=== PATIENT | male | born 1985 | race Caucasian/White ===

== ENCOUNTER 2018-06-23 18:01 | Emergency (ER) | payer MEDICAID, OTHER ==
[~2018-06-23] VITALS: Ht 180.3 cm; Wt 93.5 kg
[2018-06-23 18:01] VITALS: BP 136/61
[2018-06-23] MEDS ORDERED: PRED50TA PO (18:27)
[2018-06-23] MEDS ORDERED: HYDR25TA PO (18:27)
--- NOTE | 2018-06-23 18:27 | PHYS DOC ---
Past History Past Medical History: No Pertinent History Past Surgical History: No Surgical History Smoking: Non-smoker Alcohol Use: Occasionally Drug Use: None Adult General Chief Complaint Chief Complaint: CELLULITIS HPI HPI Patient is a 32-year-old male who presents with right leg rash. This started approximately 10 days ago as an insect bite that seemed to resolve over the course of the following week. Over the past 2 days he has had increasing itchiness and is spreading red rash. There is been no improvement with over-the- counter medicine such as topical cortisone cream and Benadryl. No difficulty breathing no purulent drainage, no fever. Symptoms are moderate in intensity. Patient denies any exposure to new foods, fish, lotions, detergents, skin creams other than noted after the onset of the rash. Denies any contact with plants such as poison ming or poison oak.[] Review of Systems Review of Systems Constitutional: Denies fever or chills [] Eyes: Denies change in visual acuity, redness, or eye pain [] HENT: Denies nasal congestion or sore throat [] Respiratory: Denies cough or shortness of breath [] Cardiovascular: No chest pain or palpitations[] GI: Denies abdominal pain, nausea, vomiting, bloody stools or diarrhea [] : Denies dysuria or hematuria [] Musculoskeletal: Denies back pain or joint pain [] Integument: The history of present illness[] Neurologic: Denies headache, focal weakness or sensory changes [] Endocrine: Denies polyuria or polydipsia [] All other systems were reviewed and found to be within normal limits, except as documented in this note. Allergies Allergies Allergies Coded Allergies Type Severity Reaction Last Updated Verified No Known Drug Allergies 06/23/18 No Physical Exam Physical Exam Constitutional: Well developed, well nourished, no acute distress, non-toxic appearance. [] HENT: Normocephalic, atraumatic, bilateral external ears normal, oropharynx moist, no oral exudates, nose normal. [] Eyes: PERRLA, EOMI, conjunctiva normal, no discharge. [] Neck: Normal range of motion, no tenderness, supple, no stridor. [] Cardiovascular:Heart rate regular rhythm, no murmur [] Lungs & Thorax: Bilateral breath sounds clear to auscultation [] Abdomen: Bowel sounds normal, soft, no tenderness, no masses, no pulsatile masses. No hepato-or splenomegaly [] Skin: Warm, dry, erythematous flat rash on the lateral portion of his right calf , no induration, no pustule, no fluctuance, no sloughing of the skin, no inguinal lymphadenopathy[] Back: No tenderness, no CVA tenderness. [] Extremities: No tenderness, no cyanosis, no clubbing, ROM intact, no edema. [] Neurologic: Alert and oriented X 3, normal motor function, normal sensory function, no focal deficits noted. [] Psychologic: Affect normal, judgement normal, mood normal. [] EKG EKG [] Radiology/Procedures Radiology/Procedures [] Course & Med Decision Making Course & Med Decision Making Pertinent Labs and Imaging studies reviewed. (See chart for details) Medical decision making: There is no evidence of toxic epidermal necrolysis, Ybarra-Carlos A syndrome, petechial issues, staph scalded skin syndrome, nor other significant rash. Will attempt better outpatient care with his systemic antihistamines and steroids.[] Dragon Disclaimer Dragon Disclaimer This electronic medical record was generated, in whole or in part, using a voice recognition dictation system. Departure Departure: Impression: Primary Impression: Rash and nonspecific skin eruption Disposition: 01 HOME, SELF-CARE Condition: IMPROVED Referrals: NON,STAFF (PCP) Patient Instructions: Rash Additional Instructions: Follow-up with your regular doctor in 2 days for recheck, if you do not have a regular doctor list of local clinics will be provided for you. Take the medication as prescribed. Return to the ER if worsening rash, purulent drainage , or any other concerns. Scripts Prednisone (PREDNISONE) 50 Mg Tablet 1 TAB PO DAILY for INFLAMMATION, #5 TAB Prov: JOHNNY DEGROOT DO 06/23/18 Hydroxyzine Hcl (HYDROXYZINE HCL) 25 Mg Tablet 1 TAB PO TID for allergic reaction, #30 TAB Prov: JOHNNY DEGROOT DO 06/23/18 JOHNNY DEGROOT DO Jun 23, 2018 18:27
== END 2018-06-23 18:30 | disposition home or self-care (01) ==
LOC: ER 18:01
DX: R21 Rash and other nonspecific skin eruption (principal)
CPT/HCPCS: 99283